=== PATIENT | male | born 1940 | race Hispanic/Latino ===

== ENCOUNTER 2018-04-27 19:04 | Inpatient (IN) | payer MEDICARE ==
[~2018-04-27 19:04] MED LIST: ACET-2160 PO; AMLO5TAB2 PO; ASPI-1181 PO; FERR325C PO; FOLI1TAB15 PO; GLIM4TAB3 PO; INVOK100TB PO; LORA10CA PO; SERT50TA12 PO; SIMV20TA6 PO; SODI650T PO; TAMS-1 PO
[2018-04-27] MEDS ORDERED: ONDANSETRON HCL 4 MG/2 ML VIAL ONE (19:37)
[2018-04-27 19:49] LABS: HEMATOCRIT 37.6 % (42-54); MEAN CORPUSCULAR HEMOGLOBIN 31.9 pg (27.0-33.0); MEAN CORPUSCULAR HGB CONC 34.4 g/dL (32.0-36.0); MEAN CORPUSCULAR VOLUME 92.9 fL (79-99); PLATELET COUNT (AUTO) 293 K/uL (130-400); RED BLOOD CELL COUNT(AUTO) 4.04 MIL/uL (4.50-6.20); RED CELL DISTRIBUTION WIDTH 13.7 % (11.0-15.5); WHITE BLOOD COUNT (AUTO) 15.5 K/uL (4.8-10.8)
[2018-04-27 20:02] LABS: ALANINE AMINOTRANSFERASE 30 U/L (12-78); ALBUMIN 4.1 g/dL (3.5-5.0); ALCOHOL, BLOOD < 3 mg/dL (0-10); ASPARTATE AMINOTRANSFERASE 23 U/L (10-37); BILIRUBIN,TOTAL 0.3 mg/dL (0.2-1.0); CARBON DIOXIDE 22 mmol/L (21-32); CHLORIDE 97 mmol/L (101-111); GLOMERULAR FILTR. RATE CALC 12 mL/min (>60); GLUCOSE,RANDOM 109 mg/dL (70-105); POTASSIUM 4.6 mmol/L (3.5-5.1); SODIUM SERUM 137 mmol/L (136-145); TOTAL PROTEIN, SERUM 7.1 g/dL (6.0-8.3)
[2018-04-27 20:04] LABS: UREA NITROGEN, BLOOD 80 mg/dL (7-18)
[2018-04-27 20:21] LABS: B-TYPE NATRIURETIC PEPTIDE 22 pg/mL (0-100)
[2018-04-27 20:25] LABS: LYMPHOCYTES % (MANUAL) 29 % (22-44); MAN.DIFF COMMENT-IMPRESSION MANUAL DIFFERENTIAL; MONOCYTES % (MANUAL) 8 % (2-9); PLATELET MORPHOLOGY COMMENT ADEQUATE; REACTIVE LYMPHOCYTES 4 % (0-0); SEGMENTED NEUTROPHILS % 59 % (40-70)
[2018-04-27] MEDS ORDERED: LEVOFLOXACIN 750 MG/D5W 150 ML 150 ML ONE (21:05)
[2018-04-27 21:24] LABS: INR 0.93 (0.85-1.15); PROTHROMBIN TIME 9.8 SEC (9.6-11.6)
[2018-04-27 21:38] LABS: CREATINE KINASE MB 2.4 ng/mL (0.5-3.6); CREATINE KINASE, TOTAL 206 U/L (21-232); MYOGLOBIN 294 ng/mL (10-92); TROPONIN I < 0.04 ng/mL (0.00-0.06)
[2018-04-27 21:43] LABS: APPEARANCE,URINE Clear (CLEAR); BILIRUBIN,URINE Negative (NEGATIVE); COLOR,URINE Yellow (YELLOW); GLUCOSE, URINE (UA) Negative (NEGATIVE); KETONES,URINE Trace mg/dL (NEGATIVE); LEUKOCYTE ESTERASE ,URINE Negative (NEGATIVE); NITRATE,URINE Negative (NEGATIVE); OCCULT BLOOD,URINE Small (NEGATIVE); PROTEIN,URINE POS 2+ (NEGATIVE)
[2018-04-27 21:57] LABS: BACTERIA,URINE Few /HPF (None Seen); RBC,URINE None Seen /HPF (0-1)
[2018-04-27 22:29] LABS: RAPID GROUP A STREP NEGATIVE (NEGATIVE)
[2018-04-27 22:55] VITALS: BP 153/64
[2018-04-27] MEDS ORDERED: SODIUM CHLORIDE 0.9% 1000ML 1,000 ML IV ONE (23:19)
[2018-04-27] MEDS ORDERED: GLUCAGON 1MG KIT 1 MG ML IM PRN (23:30)
[2018-04-27] MEDS ORDERED: LIDOCAINE HCL-MPF 1% 2ML VIAL IVP PRN (23:30)
[2018-04-27] MEDS ORDERED: POTASSIUM CHLORIDE 10% ELIXIR 20 MEQ/15 ML UDCUP PO PRN (23:30)
[2018-04-27] MEDS ORDERED: POTASSIUM CHLORIDE 20MEQ/100ML 100 ML IV PRN (23:30)
[2018-04-27] MEDS ORDERED: POTASSIUM CHLORIDE 20 MEQ ERTAB PO PRN (23:30)
[2018-04-27] MEDS ORDERED: DEXTROSE 50%-WATER 50 ML DISP.SYRIN IV PRN (23:30)
[2018-04-28 04:00] VITALS: BP 126/62
[2018-04-28 05:38] LABS: HEMATOCRIT 32.1 % (42-54); MEAN CORPUSCULAR HEMOGLOBIN 33.4 pg (27.0-33.0); MEAN CORPUSCULAR VOLUME 92.7 fL (79-99); PLATELET COUNT (AUTO) 277 K/uL (130-400); RED BLOOD CELL COUNT(AUTO) 3.46 MIL/uL (4.50-6.20); RED CELL DISTRIBUTION WIDTH 13.5 % (11.0-15.5); WHITE BLOOD COUNT (AUTO) 9.1 K/uL (4.8-10.8)
[2018-04-28 05:49] LABS: BILIRUBIN,TOTAL 0.3 mg/dL (0.2-1.0); CREATININE 4.4 mg/dL (0.5-1.5); POTASSIUM 3.9 mmol/L (3.5-5.1)
[2018-04-28] MEDS: SODIUM CHLORIDE 0.9% 1000ML 1,000 ML IV SCH ×3 (05:56→20:32)
[2018-04-28] MEDS: INSULIN HUMULIN R 100 UNIT/ML 3ML SQ SCH ×4 (06:45→20:31)
[2018-04-28 08:25] VITALS: BP 128/61
[2018-04-28] MEDS: PANTOPRAZOLE SODIUM 40 MG TABLET.DR PO SCH (08:57)
[2018-04-28] MEDS ORDERED: ENOXAPARIN SODIUM 40 MG/0.4 ML SYRINGE SQ SCH (09:00)
[2018-04-28] MEDS ORDERED: LEVOFLOXACIN 500 MG/D5W 100 ML 100 ML IV SCH (09:00)
[2018-04-28 11:56] VITALS: BP 127/83
[2018-04-28 12:22] LABS: ALBUMIN 3.1 g/dL (3.5-5.0); CREATININE 4.4 mg/dL (0.5-1.5); PHOSPHORUS 3.7 mg/dL (2.5-4.9)
[2018-04-28 16:01] VITALS: BP 133/64
[2018-04-28 20:00] VITALS: BP 112/53
[2018-04-28 23:41] VITALS: BP 145/64
[2018-04-29 04:00] VITALS: BP 135/68
[2018-04-29 05:18] LABS: HEMATOCRIT 32.5 % (42-54); MEAN CORPUSCULAR HEMOGLOBIN 32.2 pg (27.0-33.0); MEAN CORPUSCULAR VOLUME 92.1 fL (79-99); PLATELET COUNT (AUTO) 272 K/uL (130-400); RED BLOOD CELL COUNT(AUTO) 3.53 MIL/uL (4.50-6.20); RED CELL DISTRIBUTION WIDTH 13.7 % (11.0-15.5); WHITE BLOOD COUNT (AUTO) 8.6 K/uL (4.8-10.8)
[2018-04-29 05:27] LABS: CREATININE 3.5 mg/dL (0.5-1.5); POTASSIUM 3.9 mmol/L (3.5-5.1)
[2018-04-29 05:35] LABS: LYMPHOCYTES % (MANUAL) 26 % (22-44); MAN.DIFF COMMENT-IMPRESSION MANUAL DIFFERENTIAL; MONOCYTES % (MANUAL) 3 % (2-9); SEGMENTED NEUTROPHILS % 71 % (40-70)
[2018-04-29 05:36] LABS: PLATELET MORPHOLOGY COMMENT ADEQUATE
[2018-04-29] MEDS: SODIUM CHLORIDE 0.9% 1000ML 1,000 ML IV SCH ×5 (06:08→16:42)
[2018-04-29] MEDS: INSULIN HUMULIN R 100 UNIT/ML 3ML SQ SCH ×4 (06:09→22:26)
[2018-04-29 08:18] VITALS: BP 126/54
[2018-04-29] MEDS: PANTOPRAZOLE SODIUM 40 MG TABLET.DR PO SCH (09:44)
[2018-04-29] MEDS: ENOXAPARIN SODIUM 30 MG/0.3 ML SQ SCH (09:48)
[2018-04-29 12:20] VITALS: BP 126/52
[2018-04-29] MEDS ORDERED: ACETAMINOPHEN 325 MG TAB PO PRN (13:00)
[2018-04-29 16:44] VITALS: BP 128/59
[2018-04-29 19:00] VITALS: BP 147/70
[2018-04-29 23:00] VITALS: BP 136/66
[2018-04-30 03:00] VITALS: BP 135/66
[2018-04-30 05:44] LABS: CREATININE 2.5 mg/dL (0.5-1.5); POTASSIUM 4.5 mmol/L (3.5-5.1)
[2018-04-30] MEDS: INSULIN HUMULIN R 100 UNIT/ML 3ML SQ SCH ×3 (06:24→16:30)
[2018-04-30 07:00] VITALS: BP 157/74
[2018-04-30] MEDS: ENOXAPARIN SODIUM 30 MG/0.3 ML SQ SCH (08:55)
[2018-04-30] MEDS: PANTOPRAZOLE SODIUM 40 MG TABLET.DR PO SCH (08:55)
[2018-04-30] MEDS ORDERED: LACTULOSE 20 GM/30 ML UDCUP PO SCH (09:00)
[2018-04-30] MEDS ORDERED: LEVOFLOXACIN 500 MG/D5W 100 ML 100 ML IV SCH (09:00)
[2018-04-30 12:00] VITALS: BP 141/67
[2018-04-30 16:00] VITALS: BP 138/70
== END 2018-04-30 18:50 | disposition home or self-care (01) | DRG 684 ==
LOC: EDH 19:04 → OBSVTOIN 21:50 → EDHIP 21:50 → 3BH 22:49
PROVIDERS: ADMIT Family Medicine; ATTEND Family Medicine
DX: N17.9 Acute kidney failure, unspecified (principal); E86.0 Dehydration; D64.9 Anemia, unspecified; E11.9 Type 2 diabetes mellitus without complications; D72.829 Elevated white blood cell count, unspecified; E78.5 Hyperlipidemia, unspecified; I10 Essential (primary) hypertension; I25.10 Atherosclerotic heart disease of native coronary artery without angina pectoris; R55 Syncope and collapse; R00.1 Bradycardia, unspecified
CPT/HCPCS: 36415; 70450; 71045; 76770; 80048; 80053; 80069; 81001; 82550; 82553; 82948; 83605; 83874; 83880; 84484; 85025; 85027; 85610; 85730; 87040; 87088; 87804; 87880; 93005; 93306; C9113; G0480; J1650; J1815; J1956; J2405; J7030

== ENCOUNTER → 2019-06-14 | Outpatient (CLI) | payer MEDICARE ==
[~2019-06-14] MED LIST changes: -ACET-2160 PO; -AMLO5TAB2 PO; +AMLO5TAB9 PO; -ASPI-1181 PO; +HONEY 1 APPL/ML TUBE TP ONE; -INVOK100TB PO; +LIDOCAINE/PRILOCAINE CREAM 5GM TUBE TP ONE; -SODI650T PO; -TAMS-1 PO
[2019-06-14 16:29] VITALS: BP 150/67
== END | disposition home or self-care (01) ==
LOC: WHH 09:00
PROVIDERS: ATTEND Surgery
DX: T23.242A Burn of second degree of multiple left fingers (nail), including thumb, initial encounter (principal); T23.231A Burn of second degree of multiple right fingers (nail), not including thumb, initial encounter; T25.291A Burn of second degree of multiple sites of right ankle and foot, initial encounter; T25.292A Burn of second degree of multiple sites of left ankle and foot, initial encounter; T31.0 Burns involving less than 10% of body surface; E11.621 Type 2 diabetes mellitus with foot ulcer; L97.511 Non-pressure chronic ulcer of other part of right foot limited to breakdown of skin; L97.521 Non-pressure chronic ulcer of other part of left foot limited to breakdown of skin; I10 Essential (primary) hypertension; E78.5 Hyperlipidemia, unspecified; J44.9 Chronic obstructive pulmonary disease, unspecified; I25.10 Atherosclerotic heart disease of native coronary artery without angina pectoris; X08.8XXA Exposure to other specified smoke, fire and flames, initial encounter; Y93.89 Activity, other specified; Y92.89 Other specified places as the place of occurrence of the external cause; Y99.8 Other external cause status
CPT/HCPCS: 82948; A4450; G0463; J3490

== ENCOUNTER → 2019-06-18 | Outpatient (CLI) | payer MEDICARE ==
[~2019-06-18] MED LIST changes: -HONEY 1 APPL/ML TUBE TP ONE; -LIDOCAINE/PRILOCAINE CREAM 5GM TUBE TP ONE
== END | disposition home or self-care (01) ==
LOC: WHH 09:15
PROVIDERS: ATTEND Surgery
DX: T23.031D Burn of unspecified degree of multiple right fingers (nail), not including thumb, subsequent encounter (principal); T23.242D Burn of second degree of multiple left fingers (nail), including thumb, subsequent encounter; T25.031D Burn of unspecified degree of right toe(s) (nail), subsequent encounter; T25.022D Burn of unspecified degree of left foot, subsequent encounter; T25.021D Burn of unspecified degree of right foot, subsequent encounter; T31.0 Burns involving less than 10% of body surface; I10 Essential (primary) hypertension; I25.10 Atherosclerotic heart disease of native coronary artery without angina pectoris; E11.9 Type 2 diabetes mellitus without complications; E78.5 Hyperlipidemia, unspecified; J44.9 Chronic obstructive pulmonary disease, unspecified; X08.8XXD Exposure to other specified smoke, fire and flames, subsequent encounter
CPT/HCPCS: 93922

== ENCOUNTER → 2019-06-21 | Outpatient (CLI) | payer MEDICARE ==
[~2019-06-21] MED LIST changes: +LIDOCAINE/PRILOCAINE CREAM 5GM TUBE TP ONE
[2019-06-21 15:14] VITALS: BP 132/65
== END | disposition home or self-care (01) ==
LOC: WHH 10:15
PROVIDERS: ATTEND Surgery
DX: T23.031D Burn of unspecified degree of multiple right fingers (nail), not including thumb, subsequent encounter (principal); T23.242D Burn of second degree of multiple left fingers (nail), including thumb, subsequent encounter; T25.031D Burn of unspecified degree of right toe(s) (nail), subsequent encounter; T25.291D Burn of second degree of multiple sites of right ankle and foot, subsequent encounter; T25.292D Burn of second degree of multiple sites of left ankle and foot, subsequent encounter; T31.0 Burns involving less than 10% of body surface; E11.621 Type 2 diabetes mellitus with foot ulcer; L97.501 Non-pressure chronic ulcer of other part of unspecified foot limited to breakdown of skin; I10 Essential (primary) hypertension; I25.10 Atherosclerotic heart disease of native coronary artery without angina pectoris; E78.5 Hyperlipidemia, unspecified; J44.9 Chronic obstructive pulmonary disease, unspecified; X08.8XXD Exposure to other specified smoke, fire and flames, subsequent encounter
CPT/HCPCS: 16020; J3490; 11042

== ENCOUNTER → 2019-06-28 | Outpatient (CLI) | payer MEDICARE ==
[2019-06-28 13:45] VITALS: BP 147/71
== END | disposition home or self-care (01) ==
LOC: WHH 10:00
PROVIDERS: ATTEND Surgery
DX: T23.031D Burn of unspecified degree of multiple right fingers (nail), not including thumb, subsequent encounter (principal); T23.242D Burn of second degree of multiple left fingers (nail), including thumb, subsequent encounter; T25.031D Burn of unspecified degree of right toe(s) (nail), subsequent encounter; T25.291D Burn of second degree of multiple sites of right ankle and foot, subsequent encounter; T25.292D Burn of second degree of multiple sites of left ankle and foot, subsequent encounter; T31.0 Burns involving less than 10% of body surface; E11.621 Type 2 diabetes mellitus with foot ulcer; L97.501 Non-pressure chronic ulcer of other part of unspecified foot limited to breakdown of skin; I10 Essential (primary) hypertension; I25.10 Atherosclerotic heart disease of native coronary artery without angina pectoris; E78.5 Hyperlipidemia, unspecified; J44.9 Chronic obstructive pulmonary disease, unspecified; X08.8XXD Exposure to other specified smoke, fire and flames, subsequent encounter
CPT/HCPCS: 16020; A6021; A6452; J3490; 11042

== ENCOUNTER → 2019-07-05 | Outpatient (CLI) | payer MEDICARE ==
[2019-07-05 16:02] VITALS: BP 143/66
== END | disposition home or self-care (01) ==
LOC: WHH 09:45
PROVIDERS: ATTEND Surgery
DX: T25.291D Burn of second degree of multiple sites of right ankle and foot, subsequent encounter (principal); T25.292D Burn of second degree of multiple sites of left ankle and foot, subsequent encounter; T31.0 Burns involving less than 10% of body surface; E11.621 Type 2 diabetes mellitus with foot ulcer; L97.501 Non-pressure chronic ulcer of other part of unspecified foot limited to breakdown of skin; I10 Essential (primary) hypertension; I25.10 Atherosclerotic heart disease of native coronary artery without angina pectoris; E78.5 Hyperlipidemia, unspecified; J44.9 Chronic obstructive pulmonary disease, unspecified; X08.8XXD Exposure to other specified smoke, fire and flames, subsequent encounter
CPT/HCPCS: A6021; G0463; J3490

== ENCOUNTER → 2019-07-12 | Outpatient (CLI) | payer MEDICARE ==
[2019-07-12 13:15] VITALS: BP 138/56
== END | disposition home or self-care (01) ==
LOC: WHH 08:45
PROVIDERS: ATTEND Surgery
DX: T25.291D Burn of second degree of multiple sites of right ankle and foot, subsequent encounter (principal); T25.292D Burn of second degree of multiple sites of left ankle and foot, subsequent encounter; T31.0 Burns involving less than 10% of body surface; E11.621 Type 2 diabetes mellitus with foot ulcer; L97.501 Non-pressure chronic ulcer of other part of unspecified foot limited to breakdown of skin; I10 Essential (primary) hypertension; I25.10 Atherosclerotic heart disease of native coronary artery without angina pectoris; E78.5 Hyperlipidemia, unspecified; J44.9 Chronic obstructive pulmonary disease, unspecified; X08.8XXD Exposure to other specified smoke, fire and flames, subsequent encounter
CPT/HCPCS: 16020; A6021; J3490; 11042

== ENCOUNTER → 2019-07-19 | Outpatient (CLI) | payer MEDICARE ==
[~2019-07-19] MED LIST changes: -LIDOCAINE/PRILOCAINE CREAM 5GM TUBE TP ONE
[2019-07-19 12:10] VITALS: BP 142/58
== END | disposition home or self-care (01) ==
LOC: WHH 09:00
PROVIDERS: ATTEND Surgery
DX: T25.291D Burn of second degree of multiple sites of right ankle and foot, subsequent encounter (principal); T31.0 Burns involving less than 10% of body surface; E11.9 Type 2 diabetes mellitus without complications; I10 Essential (primary) hypertension; I25.10 Atherosclerotic heart disease of native coronary artery without angina pectoris; E78.5 Hyperlipidemia, unspecified; J44.9 Chronic obstructive pulmonary disease, unspecified; X08.8XXD Exposure to other specified smoke, fire and flames, subsequent encounter
CPT/HCPCS: G0463

== ENCOUNTER 2019-07-26 09:00 | Outpatient (CLI) | payer MEDICARE ==
[2019-07-26 12:45] VITALS: BP 132/62
== END 2019-07-26 13:43 | disposition home or self-care (01) ==
LOC: WHH 09:00
PROVIDERS: ATTEND Surgery
DX: E11.621 Type 2 diabetes mellitus with foot ulcer (principal); L97.511 Non-pressure chronic ulcer of other part of right foot limited to breakdown of skin; L97.521 Non-pressure chronic ulcer of other part of left foot limited to breakdown of skin; I10 Essential (primary) hypertension; I25.10 Atherosclerotic heart disease of native coronary artery without angina pectoris; E78.5 Hyperlipidemia, unspecified; J44.9 Chronic obstructive pulmonary disease, unspecified
CPT/HCPCS: G0463

== ENCOUNTER 2019-08-29 13:31 | Emergency (ER) | payer MEDICARE ==
[~2019-08-29 13:31] MED LIST changes: -GLIM4TAB3 PO; +GLIM4TAB5 PO; +SIMV-43 PO; -SIMV20TA6 PO
[2019-08-29] MEDS ORDERED: SODIUM CHLORIDE 0.9% 1000ML 1,000 ML IV ONE (13:56)
[2019-08-29] MEDS ORDERED: KETOROLAC TROMETHAMINE 15MG/ML ONE (13:56)
[2019-08-29] MEDS ORDERED: ONDANSETRON HCL 4 MG/2 ML VIAL ONE (13:56)
[2019-08-29 14:07] LABS: BASOPHILS % (AUTO) 0.5 % (0.0-5.0); EOSINOPHILS % (AUTO) 0.2 % (0.0-8.0); LYMPHOCYTES % (AUTO) 14.4 % (21.0-51.0); MONOCYTES % (AUTO) 4.1 % (3.0-13.0); NEUTROPHILS % (AUTO) 80.8 % (40.0-77.0); PLATELET COUNT (AUTO) 270 K/uL (130-400); RED BLOOD CELL COUNT(AUTO) 3.85 MIL/uL (4.50-6.20); RED CELL DISTRIBUTION WIDTH 14.6 % (11.0-15.5); WHITE BLOOD COUNT (AUTO) 10.8 K/uL (4.8-10.8)
[2019-08-29 14:17] LABS: POTASSIUM 3.7 mmol/L (3.5-5.1)
[2019-08-29 14:21] LABS: ALBUMIN 4.1 g/dL (3.5-5.0); BILIRUBIN,DIRECT 0.1 mg/dL (0.0-0.3); BILIRUBIN,TOTAL 0.6 mg/dL (0.2-1.0); TOTAL PROTEIN, SERUM 6.9 g/dL (6.0-8.3)
== END 2019-08-29 16:10 | disposition home or self-care (01) ==
LOC: EDH 13:31
DX: R11.2 Nausea with vomiting, unspecified (principal); R10.9 Unspecified abdominal pain; E11.9 Type 2 diabetes mellitus without complications; E78.5 Hyperlipidemia, unspecified; I10 Essential (primary) hypertension; Z72.0 Tobacco use
CPT/HCPCS: 36415; 71045; 74176; 76705; 80048; 80076; 82550; 83690; 84484; 85025; 93005; 96361; 96374; 96375; 99285; J1885; J2405; J7030

== ENCOUNTER 2023-10-25 18:15 | Inpatient (IN) | payer OTHER, MEDICARE ==
[~2023-10-25] VITALS: Ht 167.6 cm; Wt 76.0 kg
[~2023-10-25 18:15] MED LIST changes: +AMLO-257 PO; -AMLO5TAB9 PO; +GLIM4TAB36 PO; -GLIM4TAB5 PO; +SERT-439 PO; -SERT50TA12 PO
[2023-10-25 19:03] LABS: HEMATOCRIT 25.9 % (42-54); MEAN CORPUSCULAR HEMOGLOBIN 30.4 pg (27.0-33.0); MEAN CORPUSCULAR HGB CONC 33.6 g/dL (32.0-36.0); MEAN CORPUSCULAR VOLUME 90.6 fL (79-99); RED BLOOD CELL COUNT(AUTO) 2.86 MIL/uL (4.50-6.20); RED CELL DISTRIBUTION WIDTH 13.3 % (11.0-15.5); WHITE BLOOD COUNT (AUTO) 7.8 K/uL (4.8-10.8)
[2023-10-25 19:44] LABS: CREATININE 1.5 mg/dL (0.5-1.5); POTASSIUM 4.1 mmol/L (3.5-5.1)
[2023-10-25 19:49] LABS: ALBUMIN 3.6 g/dL (3.5-5.0); BILIRUBIN,TOTAL 0.2 mg/dL (0.2-1.0); TOTAL PROTEIN, SERUM 7.1 g/dL (6.0-8.3)
[2023-10-25] MEDS ORDERED: IPRATROPIUM/ALBUTEROL SULFATE 3 ML SOLUTION IH ONE (22:00)
[2023-10-25] MEDS ORDERED: SOLU-MEDROL 125MG VIAL IVP ONE (22:00)
[2023-10-25] MEDS ORDERED: CEFTRIAXONE 1G VIAL IVPB ONE (22:30)
[2023-10-25] MEDS ORDERED: AZITHROMYCIN 250 MG TABLET PO ONE (22:30)
[2023-10-25 23:39] VITALS: PULSE 70; RESP 17
[2023-10-26] VITALS (8 sets, daily range): BP systolic 173; BP diastolic 82; PULSE 77–86; RESP 18–20; O2SAT 96–100
[2023-10-26 00:27] LABS: SARS-CoV-2, RNA, NAAT NEGATIVE SARS CoV-2 (NEGATIVE)
[2023-10-26 00:30] LABS: INFLUENZA TYPE A Negative For Type A (NEGATIVE); INFLUENZA TYPE B Negative For Type B (NEGATIVE)
[2023-10-26] MEDS ORDERED: ONDANSETRON 4MG INJ IV PRN (03:00)
[2023-10-26] MEDS ORDERED: AZITHROMYCIN 500MG+NS 250ML 250 ML IVPB SCH (03:00)
[2023-10-26] MEDS ORDERED: GLUCAGON 1MG KIT 1 MG ML IM PRN (03:00)
[2023-10-26] MEDS ORDERED: CEFTRIAXONE 1G VIAL IVPB SCH (03:00)
[2023-10-26] MEDS ORDERED: DEXTROSE 50%-WATER 50 ML DISP.SYRIN IV PRN (03:00)
[2023-10-26] MEDS ORDERED: GUAIFENESIN-DM 200/20 MG 10 ML PO PRN (03:00)
[2023-10-26] MEDS ORDERED: POTASSIUM CHLORIDE 20MEQ/100ML 100 ML IV PRN (03:00)
[2023-10-26] MEDS ORDERED: POTASSIUM CHLORIDE 10% ELIXIR 20 MEQ/15 ML UDCUP PO PRN (03:00)
[2023-10-26] MEDS ORDERED: KCL 20 MEQ ERTAB PO PRN (03:00)
[2023-10-26] MEDS ORDERED: ACETAMINOPHEN 325 MG TAB PO PRN (03:00)
[2023-10-26] MEDS ORDERED: MAGNESIUM 2GM PREMIX 50ML 50 ML IV PRN (03:00)
[2023-10-26] MEDS: IPRATROPIUM/ALBUTEROL SULFATE 3 ML SOLUTION IH PRN ×4 (06:38→23:45)
[2023-10-26 06:53] LABS: BASOPHILS # (AUTO) 0.01 K/uL (0.00-0.20); BASOPHILS % (AUTO) 0.2 % (0.0-5.0); HEMATOCRIT 25.5 % (42-54); IMMATURE GRANULOCYTE ABSOLUTE 0.03 K/uL (0-1); LYMPHOCYTES # (AUTO) 0.4 K/uL (1.0-4.8); LYMPHOCYTES % (AUTO) 6.8 % (21.0-51.0); MEAN CORPUSCULAR HEMOGLOBIN 31.3 pg (27.0-33.0); MEAN CORPUSCULAR HGB CONC 34.1 g/dL (32.0-36.0); MEAN CORPUSCULAR VOLUME 91.7 fL (79-99); MONOCYTES # (AUTO) 0.1 K/uL (0.1-1.0); MONOCYTES % (AUTO) 1.2 % (3.0-13.0); NEUTROPHILS # (AUTO) 4.7 K/uL (1.8-7.7); NEUTROPHILS % (AUTO) 91.2 % (40.0-77.0); PLATELET COUNT (AUTO) 242 K/uL (130-400); RED BLOOD CELL COUNT(AUTO) 2.78 MIL/uL (4.50-6.20); RED CELL DISTRIBUTION WIDTH 13.2 % (11.0-15.5); WHITE BLOOD COUNT (AUTO) 5.1 K/uL (4.8-10.8)
[2023-10-26 07:03] LABS: ALBUMIN 3.3 g/dL (3.5-5.0); BILIRUBIN,TOTAL 0.2 mg/dL (0.2-1.0); CREATININE 1.3 mg/dL (0.5-1.5); POTASSIUM 4.7 mmol/L (3.5-5.1); TOTAL PROTEIN, SERUM 6.6 g/dL (6.0-8.3)
[2023-10-26] MEDS: FAMOTIDINE 20MG TAB PO SCH (08:18)
[2023-10-26] MEDS: SOLU-MEDROL 40MG VIAL IVP SCH ×2 (08:18→21:12)
[2023-10-26] MEDS: INSULIN HUMULIN R 100 UNIT/ML 3ML SQ SCH ×4 (08:19→21:13)
[2023-10-26] MEDS ORDERED: IOHEXOL-350 75 ML VIAL IV ONE (08:36)
[2023-10-26] MEDS ORDERED: FAMOTIDINE 20MG TAB PO SCH (09:00)
[2023-10-26 14:16] LABS: ABG BASE EXCESS -5.3 mmol/L (-2.0-3.0); ABG HCO3 17.2 mmol/L (21.0-28.0); ABG OXYGEN SATURATION 99.2 % (95.0-99.0); ABG PCO2 27 mmHg (35-48); PO2, ARTERIAL BG 164.1 mmHg (83.0-108.0); VENT MODE, BG NRM (ROOM AIR)
[2023-10-26] MEDS: INSULIN GLARGINE 100 UNITS/ML 10 ML VIAL SQ SCH (21:12)
[2023-10-26] MEDS: AZITHROMYCIN 500MG+NS 250ML 250 ML IVPB SCH (22:44)
[2023-10-26] MEDS: CEFTRIAXONE 1G VIAL IVPB SCH (22:44)
[2023-10-26] MEDS: ACETAMINOPHEN 325 MG TAB PO PRN (23:23)
[2023-10-26] MEDS ORDERED: TAMS-1 PO (23:55)
[2023-10-26] MEDS ORDERED: SITA1TAB6 PO (23:55)
[2023-10-26] MEDS ORDERED: AMLO5TAB4 PO (23:55)
[2023-10-26] MEDS ORDERED: AEC81 PO (23:55)
[2023-10-26] MEDS ORDERED: GLIP5TAB15 PO (23:55)
[2023-10-26] MEDS ORDERED: SIMV-46 PO (23:55)
[2023-10-26] MEDS ORDERED: SERT-439 PO (23:55)
[2023-10-27] VITALS (14 sets, daily range): BP systolic 133–169; BP diastolic 59–77; PULSE 71–88; RESP 16–22; O2SAT 97–99
[2023-10-27] MEDS: INSULIN HUMULIN R 100 UNIT/ML 3ML SQ SCH ×4 (05:37→19:51)
[2023-10-27] MEDS: ACETAMINOPHEN 325 MG TAB PO PRN ×2 (05:41→11:44)
[2023-10-27] MEDS: IPRATROPIUM/ALBUTEROL SULFATE 3 ML SOLUTION IH PRN ×4 (06:47→23:51)
[2023-10-27] MEDS: SOLU-MEDROL 40MG VIAL IVP SCH (08:35)
[2023-10-27] MEDS: FAMOTIDINE 20MG TAB PO SCH (08:35)
[2023-10-27] MEDS: ATORVASTATIN 20 MG TABLET PO SCH (19:51)
[2023-10-27] MEDS: INSULIN GLARGINE 100 UNITS/ML 10 ML VIAL SQ SCH (19:52)
[2023-10-27] MEDS: CEFTRIAXONE 1G VIAL IVPB SCH (22:51)
[2023-10-27] MEDS: AZITHROMYCIN 500MG+NS 250ML 250 ML IVPB SCH (22:51)
[2023-10-28] VITALS (9 sets, daily range): BP systolic 121–149; BP diastolic 60–69; PULSE 67–85; RESP 16–20; O2SAT 94–100
[2023-10-28] MEDS: INSULIN HUMULIN R 100 UNIT/ML 3ML SQ SCH ×5 (04:48→21:41)
[2023-10-28] MEDS: IPRATROPIUM/ALBUTEROL SULFATE 3 ML SOLUTION IH PRN (06:38)
[2023-10-28 07:31] LABS: ABG BASE EXCESS -1.1 mmol/L (-2.0-3.0); ABG HCO3 22.6 mmol/L (21.0-28.0); ABG OXYGEN SATURATION 90.3 % (95.0-99.0); ABG PCO2 35 mmHg (35-48); ABG PH 7.431 (7.35-7.450); PO2, ARTERIAL BG 56.2 mmHg (83.0-108.0); VENT MODE, BG RA (ROOM AIR)
[2023-10-28] MEDS ORDERED: NON-FORMULARY MEDICATION 1 EACH (Simvastatin 1 TAB) PO SCH (09:00)
[2023-10-28] MEDS: TAMSULOSIN HCL 0.4 MG CAP.ER.24H PO SCH (09:51)
[2023-10-28] MEDS: SERTRALINE HCL 50 MG TABLET PO SCH (09:51)
[2023-10-28] MEDS: AMLODIPINE 5 MG TAB PO SCH (09:51)
[2023-10-28] MEDS: FAMOTIDINE 20MG TAB PO SCH (09:51)
[2023-10-28] MEDS: ASPIRIN 81 MG EC TAB PO SCH (09:51)
[2023-10-28 16:35] LABS: BASOPHILS # (AUTO) 0.01 K/uL (0.00-0.20); BASOPHILS % (AUTO) 0.1 % (0.0-5.0); EOSINOPHILS # (AUTO) 0.03 K/uL (0.00-0.70); EOSINOPHILS % (AUTO) 0.2 % (0.0-8.0); HEMATOCRIT 25.6 % (42-54); IMMATURE GRANULOCYTE ABSOLUTE 0.08 K/uL (0-1); LYMPHOCYTES # (AUTO) 1.7 K/uL (1.0-4.8); LYMPHOCYTES % (AUTO) 13.8 % (21.0-51.0); MEAN CORPUSCULAR HEMOGLOBIN 30.8 pg (27.0-33.0); MEAN CORPUSCULAR HGB CONC 33.6 g/dL (32.0-36.0); MEAN CORPUSCULAR VOLUME 91.8 fL (79-99); NEUTROPHILS # (AUTO) 9.4 K/uL (1.8-7.7); NEUTROPHILS % (AUTO) 77.2 % (40.0-77.0); PLATELET COUNT (AUTO) 283 K/uL (130-400); RED BLOOD CELL COUNT(AUTO) 2.79 MIL/uL (4.50-6.20); RED CELL DISTRIBUTION WIDTH 13.9 % (11.0-15.5); WHITE BLOOD COUNT (AUTO) 12.2 K/uL (4.8-10.8)
[2023-10-28 17:27] LABS: PLATELET COUNT (AUTO) 283 K/uL (130-400)
[2023-10-28 17:34] LABS: INR < 0.93 (0.85-1.15); PROTHROMBIN TIME 10.4 SEC (9.6-11.6)
[2023-10-28 17:36] LABS: PARTIAL THROMBOPLASTIN TIME 25.6 SEC (26.3-35.5)
[2023-10-28 17:55] LABS: FIBRINOGEN 437 mg/dL (180-350)
[2023-10-28 19:07] LABS: D-DIMER 5080 ng/mL (0-500)
[2023-10-28 20:08] LABS: CREATININE 1.6 mg/dL (0.5-1.5); POTASSIUM 3.7 mmol/L (3.5-5.1)
[2023-10-28] MEDS: AZITHROMYCIN 500MG+NS 250ML 250 ML IVPB SCH (21:40)
[2023-10-28] MEDS: ATORVASTATIN 20 MG TABLET PO SCH (21:40)
[2023-10-28] MEDS: INSULIN GLARGINE 100 UNITS/ML 10 ML VIAL SQ SCH (21:42)
[2023-10-29] VITALS (8 sets, daily range): BP systolic 133–146; BP diastolic 56–96; PULSE 61–70; RESP 16–20; O2SAT 100
[2023-10-29] MEDS: CEFTRIAXONE 1G VIAL IVPB SCH ×2 (00:20→21:18)
[2023-10-29 04:25] LABS: BASOPHILS # (AUTO) 0.01 K/uL (0.00-0.20); BASOPHILS % (AUTO) 0.1 % (0.0-5.0); EOSINOPHILS # (AUTO) 0.12 K/uL (0.00-0.70); EOSINOPHILS % (AUTO) 0.9 % (0.0-8.0); HEMATOCRIT 25.8 % (42-54); IMMATURE GRANULOCYTE ABSOLUTE 0.13 K/uL (0-1); LYMPHOCYTES # (AUTO) 0.7 K/uL (1.0-4.8); LYMPHOCYTES % (AUTO) 5.3 % (21.0-51.0); MEAN CORPUSCULAR HEMOGLOBIN 30.9 pg (27.0-33.0); MEAN CORPUSCULAR HGB CONC 33.3 g/dL (32.0-36.0); MEAN CORPUSCULAR VOLUME 92.8 fL (79-99); MONOCYTES % (AUTO) 7.9 % (3.0-13.0); NEUTROPHILS # (AUTO) 10.8 K/uL (1.8-7.7); NEUTROPHILS % (AUTO) 84.8 % (40.0-77.0); PLATELET COUNT (AUTO) 292 K/uL (130-400); RED BLOOD CELL COUNT(AUTO) 2.78 MIL/uL (4.50-6.20); RED CELL DISTRIBUTION WIDTH 13.8 % (11.0-15.5); WHITE BLOOD COUNT (AUTO) 12.8 K/uL (4.8-10.8)
[2023-10-29 04:44] LABS: CREATININE 1.4 mg/dL (0.5-1.5); MAGNESIUM 2.2 mg/dL (1.80-2.40); PHOSPHORUS 4.7 mg/dL (2.5-4.9)
[2023-10-29 04:55] LABS: INR < 0.93 (0.85-1.15); PROTHROMBIN TIME 10.2 SEC (9.6-11.6)
[2023-10-29 05:06] LABS: % IRON SATURATION 6.6 % (30-44)
[2023-10-29] MEDS: INSULIN HUMULIN R 100 UNIT/ML 3ML SQ SCH ×3 (06:42→21:00)
[2023-10-29] MEDS: TAMSULOSIN HCL 0.4 MG CAP.ER.24H PO SCH (09:12)
[2023-10-29] MEDS: SERTRALINE HCL 50 MG TABLET PO SCH (09:13)
[2023-10-29] MEDS: FAMOTIDINE 20MG TAB PO SCH (09:13)
[2023-10-29] MEDS: AMLODIPINE 5 MG TAB PO SCH (09:13)
[2023-10-29] MEDS: ASPIRIN 81 MG EC TAB PO SCH (09:13)
[2023-10-29] MEDS ORDERED: FUROSEMIDE 20MG VIAL IV ONE (10:30)
[2023-10-29] MEDS ORDERED: LACTULOSE 20 GM/30 ML UDCUP PO ONE (18:00)
[2023-10-29] MEDS: INSULIN GLARGINE 100 UNITS/ML 10 ML VIAL SQ SCH (21:00)
[2023-10-29] MEDS: LACTULOSE 20 GM/30 ML UDCUP PO SCH (21:18)
[2023-10-29] MEDS: ATORVASTATIN 20 MG TABLET PO SCH (21:18)
[2023-10-29] MEDS: AZITHROMYCIN 500MG+NS 250ML 250 ML IVPB SCH (21:18)
[2023-10-30] VITALS (8 sets, daily range): BP systolic 130–156; BP diastolic 59–76; PULSE 66–86; RESP 18–20; O2SAT 96–98
[2023-10-30] MEDS: ACETAMINOPHEN 325 MG TAB PO PRN (00:18)
[2023-10-30 04:09] LABS: BASOPHILS # (AUTO) 0.02 K/uL (0.00-0.20); BASOPHILS % (AUTO) 0.2 % (0.0-5.0); EOSINOPHILS # (AUTO) 0.07 K/uL (0.00-0.70); EOSINOPHILS % (AUTO) 0.6 % (0.0-8.0); HEMATOCRIT 26.7 % (42-54); IMMATURE GRANULOCYTE ABSOLUTE 0.08 K/uL (0-1); LYMPHOCYTES # (AUTO) 1.4 K/uL (1.0-4.8); LYMPHOCYTES % (AUTO) 12.7 % (21.0-51.0); MEAN CORPUSCULAR HEMOGLOBIN 31.3 pg (27.0-33.0); MEAN CORPUSCULAR HGB CONC 33.3 g/dL (32.0-36.0); MONOCYTES # (AUTO) 1.1 K/uL (0.1-1.0); MONOCYTES % (AUTO) 9.7 % (3.0-13.0); NEUTROPHILS # (AUTO) 8.6 K/uL (1.8-7.7); NEUTROPHILS % (AUTO) 76.1 % (40.0-77.0); PLATELET COUNT (AUTO) 302 K/uL (130-400); RED BLOOD CELL COUNT(AUTO) 2.84 MIL/uL (4.50-6.20); RED CELL DISTRIBUTION WIDTH 13.5 % (11.0-15.5); WHITE BLOOD COUNT (AUTO) 11.3 K/uL (4.8-10.8)
[2023-10-30 04:21] LABS: CREATININE 1.3 mg/dL (0.5-1.5)
[2023-10-30] MEDS: INSULIN HUMULIN R 100 UNIT/ML 3ML SQ SCH ×4 (06:40→21:00)
[2023-10-30] MEDS: TAMSULOSIN HCL 0.4 MG CAP.ER.24H PO SCH (09:36)
[2023-10-30] MEDS: FAMOTIDINE 20MG TAB PO SCH (09:36)
[2023-10-30] MEDS: SERTRALINE HCL 50 MG TABLET PO SCH (09:36)
[2023-10-30] MEDS: LACTULOSE 20 GM/30 ML UDCUP PO SCH ×2 (09:36→21:38)
[2023-10-30] MEDS: ASPIRIN 81 MG EC TAB PO SCH (09:36)
[2023-10-30] MEDS: AMLODIPINE 5 MG TAB PO SCH (09:36)
[2023-10-30] MEDS: INSULIN GLARGINE 100 UNITS/ML 10 ML VIAL SQ SCH (21:00)
[2023-10-30] MEDS: ATORVASTATIN 20 MG TABLET PO SCH (21:38)
[2023-10-30] MEDS: AZITHROMYCIN 500MG+NS 250ML 250 ML IVPB SCH (23:42)
[2023-10-30] MEDS: CEFTRIAXONE 1G VIAL IVPB SCH (23:42)
[2023-10-31] VITALS: BP 129/67; PULSE 84; RESP 20
[2023-10-31 04:00] VITALS: BP 146/68; PULSE 73; RESP 18
[2023-10-31 04:34] LABS: BASOPHILS # (AUTO) 0.03 K/uL (0.00-0.20); BASOPHILS % (AUTO) 0.3 % (0.0-5.0); EOSINOPHILS # (AUTO) 0.16 K/uL (0.00-0.70); EOSINOPHILS % (AUTO) 1.9 % (0.0-8.0); HEMATOCRIT 26.5 % (42-54); IMMATURE GRANULOCYTE ABSOLUTE 0.04 K/uL (0-1); LYMPHOCYTES # (AUTO) 1.4 K/uL (1.0-4.8); LYMPHOCYTES % (AUTO) 15.7 % (21.0-51.0); MEAN CORPUSCULAR HEMOGLOBIN 30.8 pg (27.0-33.0); MEAN CORPUSCULAR VOLUME 90.8 fL (79-99); MONOCYTES # (AUTO) 0.8 K/uL (0.1-1.0); MONOCYTES % (AUTO) 9.4 % (3.0-13.0); NEUTROPHILS # (AUTO) 6.2 K/uL (1.8-7.7); NEUTROPHILS % (AUTO) 72.2 % (40.0-77.0); PLATELET COUNT (AUTO) 316 K/uL (130-400); RED BLOOD CELL COUNT(AUTO) 2.92 MIL/uL (4.50-6.20); RED CELL DISTRIBUTION WIDTH 13.1 % (11.0-15.5); WHITE BLOOD COUNT (AUTO) 8.6 K/uL (4.8-10.8)
[2023-10-31 04:48] LABS: CREATININE 1.1 mg/dL (0.5-1.5); POTASSIUM 3.7 mmol/L (3.5-5.1)
[2023-10-31] MEDS: INSULIN HUMULIN R 100 UNIT/ML 3ML SQ SCH ×2 (05:58→12:06)
[2023-10-31 07:00] VITALS: BP 151/72; PULSE 68; RESP 18
[2023-10-31 08:00] VITALS: O2SAT 94
[2023-10-31] MEDS: TAMSULOSIN HCL 0.4 MG CAP.ER.24H PO SCH (09:26)
[2023-10-31] MEDS: SERTRALINE HCL 50 MG TABLET PO SCH (09:26)
[2023-10-31] MEDS: AMLODIPINE 5 MG TAB PO SCH (09:26)
[2023-10-31] MEDS: LACTULOSE 20 GM/30 ML UDCUP PO SCH (09:26)
[2023-10-31] MEDS: FAMOTIDINE 20MG TAB PO SCH (09:27)
[2023-10-31] MEDS: ASPIRIN 81 MG EC TAB PO SCH (09:27)
[2023-10-31 12:00] VITALS: BP 138/62; PULSE 73; RESP 17
== END 2023-10-31 16:35 | disposition home or self-care (01) | DRG 199 ==
LOC: EDH 18:15 → OBSVTOIN 10-26 02:31 → EDHIP 10-26 02:31 → 4BH 10-26 22:19
PROVIDERS: ADMIT Hospitalist; ATTEND Hospitalist
PROC: 0W9930Z Drainage of Right Pleural Cavity with Drainage Device, Percutaneous Approach (ICD-10-PCS; principal; 2023-10-26)
DX: S27.2XXA Traumatic hemopneumothorax, initial encounter (principal); J18.9 Pneumonia, unspecified organism; J96.01 Acute respiratory failure with hypoxia; J44.0 Chronic obstructive pulmonary disease with (acute) lower respiratory infection; S22.41XA Multiple fractures of ribs, right side, initial encounter for closed fracture; J90 Pleural effusion, not elsewhere classified; J98.11 Atelectasis; D64.9 Anemia, unspecified; I10 Essential (primary) hypertension; E11.65 Type 2 diabetes mellitus with hyperglycemia; E66.3 Overweight; Z68.29 Body mass index [BMI] 29.0-29.9, adult; E78.5 Hyperlipidemia, unspecified; F17.210 Nicotine dependence, cigarettes, uncomplicated; I25.10 Atherosclerotic heart disease of native coronary artery without angina pectoris; N40.0 Benign prostatic hyperplasia without lower urinary tract symptoms; W01.0XXA Fall on same level from slipping, tripping and stumbling without subsequent striking against object, initial encounter; Y92.89 Other specified places as the place of occurrence of the external cause; Y99.8 Other external cause status; Z82.49 Family history of ischemic heart disease and other diseases of the circulatory system; Z82.5 Family history of asthma and other chronic lower respiratory diseases; Z83.3 Family history of diabetes mellitus
CPT/HCPCS: 36415; 36600; 71045; 71250; 71270; 78582; 80048; 80053; 82803; 82948; 83540; 83550; 83605; 83615; 83735; 83880; 84100; 84145; 84484; 85025; 85027; 85378; 85384; 85610; 85730; 86140; 87040; 87635; 87804; 93005; 93970; 94640; A9540; A9558; C9803; G0378; J0456; J0696; J1815; J1940; J2920; J2930; Q9967